=== PATIENT | male | born 1995 | race Two or more races ===

== ENCOUNTER 2018-12-27 05:21 | Emergency (ER) | payer OTHER ==
[~2018-12-27] VITALS: Ht 167.6 cm; Wt 72.6 kg
[2018-12-27] MEDS: ASPIRIN 325 MG TABLET PO ONE (05:52)
[2018-12-27] MEDS ORDERED: ASPIRIN 325 MG TABLET ONE (05:52)
[2018-12-27] MEDS ORDERED: LORAZEPAM 2 MG/1 ML VIAL ONE ×2 (05:54→06:14)
[2018-12-27 06:01] LABS: BASOPHILS # (AUTO) 0.1 K/uL (0.0-8.0); BASOPHILS % (AUTO) 0.7 % (0.0-2.0); EOSINOPHILS % (AUTO) 0.6 % (0.0-7.0); HEMATOCRIT 53.7 % (36.7-47.1); HEMOGLOBIN 18.3 g/dL (12.5-16.3); LYMPHOCYTES # (AUTO) 2.4 K/uL (20.0-40.0); LYMPHOCYTES % (AUTO) 30.5 % (20.5-51.5); MEAN CORPUSCULAR HEMOGLOBIN 31.2 uug (23.8-33.4); MEAN CORPUSCULAR HGB CONC 34 g/dL (32.5-36.3); MEAN CORPUSCULAR VOLUME 91.2 fL (73.0-96.2); MONOCYTES # (AUTO) 0.7 K/uL (2.0-10.0); MONOCYTES % (AUTO) 9.2 % (0.0-11.0); NEUTROPHILS # (AUTO) 4.7 K/uL (1.8-8.9); PLATELET COUNT (AUTO) 300 K/uL (152-348); RED BLOOD CELL COUNT(AUTO) 5.89 MIL/uL (4.06-5.63); WHITE BLOOD COUNT (AUTO) 7.9 K/uL (3.6-10.2)
[2018-12-27] MEDS: LORAZEPAM 2 MG/1 ML VIAL IV ONE ×2 (06:01→06:14)
[2018-12-27 06:10] LABS: CREATININE 1.1 mg/dL (0.6-1.3)
[2018-12-27 06:22] LABS: BILIRUBIN,DIRECT 0.3 mg/dL (0.0-0.2); BILIRUBIN,TOTAL 1.2 mg/dL (0.2-1.0); TOTAL PROTEIN, SERUM 9.2 g/dL (6.4-8.2)
--- NOTE | 2018-12-27 07:14 | NUR ---
Report received.Pt remains awake,alert.Denies pain,discomfort.Noted with tachycardia on monitor with rate in 120s.Denied chest pain.Will continue to monitor.
[2018-12-27 07:17] LABS: THYROID STIMULATING HORMONE 2.834 mIU/mL (0.358-3.740)
--- NOTE | 2018-12-27 07:21 | NUR ---
Pt was seen by .
[2018-12-27] MEDS: chlorproMAZINE 50 MG/2 ML AMPUL IM ONE (07:32)
[2018-12-27] MEDS ORDERED: chlorproMAZINE 50 MG/2 ML AMPUL ONE (07:32)
--- NOTE | 2018-12-27 09:47 | NUR ---
Pt sleeping,aurousable.No c/o pain,discomfort.Pt apears comfortable.will continue to monitor.Remains tachycardic on monitor.
[2018-12-27] MEDS: IV NORMAL SALINE 1000 ML BAG IV ONE (10:04)
--- NOTE | 2018-12-27 11:28 | NUR ---
Pt remains asleep,aurousable.Denies pain,discomfort.Will continue to monitor.
--- NOTE | 2018-12-27 12:12 | NUR ---
IV removed. Catheter intact and site benign. Pressure and 4x4 gauze applied to site. No bleeding noted.
[2018-12-27 12:13] VITALS: BP 106/60
== END 2018-12-27 12:15 | disposition home or self-care (01) ==
LOC: ER 05:26
DX: F15.929 Other stimulant use, unspecified with intoxication, unspecified (principal); F41.0 Panic disorder [episodic paroxysmal anxiety]; F31.9 Bipolar disorder, unspecified; F17.210 Nicotine dependence, cigarettes, uncomplicated
CPT/HCPCS: 36415; 71045; 80048; 80076; 82550 ×2; 83880; 84443; 84484 ×2; 85025; 93005; 96372; 96374; 99284; J2060 ×2; J3230; 70030-TC; A4663; J7030